=== PATIENT | male | born 1980 | race Caucasian/White ===

== ENCOUNTER 2017-05-25 23:08 | Emergency (ER) | payer SELFPAY ==
[~2017-05-25] VITALS: Ht 182.9 cm; Wt 79.2 kg
[2017-05-25 23:11] VITALS: Ht 182.9 cm; Wt 79.2 kg
[2017-05-25] MEDS ORDERED: IBUPROFEN 600 MG TAB PO ONE (23:30)
[2017-05-25] MEDS ORDERED: AMOXICILLIN/CLAV 875 MG TAB PO ONE (23:30)
[2017-05-26] MEDS ORDERED: IBUP-1542 PO (00:21)
[2017-05-26] MEDS ORDERED: AMOX1TAB10 PO (00:21)
[2017-05-26] MEDS ORDERED: HYDR-906 PO (00:21)
[2017-05-26] MEDS ORDERED: BACI28.34 TOP (00:31)
--- NOTE | 2017-05-26 00:31 | ERD ---
ER Documentation Chief Complaint Chief Complaint sp dogbite to both hands 15 minutes ago HPI Patient is a 36-year-old male who presents to the ED for concerns of dog bites his bilateral hands which occurred approximately 15 minutes prior to arrival. Patient states that he was walking outside with his friends when an unknown dog came up to him and started to jump on him. Patient states he had dog bites to his bilateral hands. Patient does not know this dog. Patient is unsure of the dog's vaccination status. Patient states her last tetanus vaccination was 3 years ago. Patient is able to move his bilateral hands and fingers without any difficulty. Patient denies any medications for symptoms. Patient is visiting from [place]. ROS All systems reviewed and are negative except as per history of present illness. Medications Home Meds Active Scripts Bacitracin* (Bacitracin Zinc Oint*) 28.35 Gm Oint, 1 APPLIC TOP BID, #1 TUB APPLI TO Prov:TEJINDER VALDIVIA PA-C 05/26/17 Hydrocodone/Acetaminophen ([place] 5-325 Tablet) 1 Each Tablet, 1 TAB PO Q6H Y for PAIN, #7 TAB Prov:TEJINDER VALDIVIA PA-C 05/26/17 Amoxicillin/Potassium Clav (Amox-Clav 875-125 mg Tablet) 875-125 mg Tab, 1 TAB PO BID for 10 Days, #20 TAB Prov:TEJINDER VALDIVIA PA-C 05/26/17 Ibuprofen* (Motrin*) 600 Mg Tab, 600 MG PO Q6, #30 TAB Prov:TEJINDER VALDIVIA PA-C 05/26/17 Allergies Allergies: Coded Allergies: No Known Allergy (Unverified , 05/25/17) PMhx/Soc Medical and Surgical Hx: pt denies Medical Hx, pt denies Surgical Hx History of Surgery: No Anesthesia Reaction: No Hx Neurological Disorder: No Hx Respiratory Disorders: No Hx Cardiac Disorders: No Hx Psychiatric Problems: No Hx Miscellaneous Medical Probl: No Hx Alcohol Use: No Hx Substance Use: No Hx Tobacco Use: No Smoking Status: Never smoker Physical Exam Vitals Vital Signs Date Time Temp Pulse Resp B/P Pulse Ox O2 Delivery O2 Flow Rate FiO2 05/25/17 23:11 98.1 90 20 147/111 99 Physical Exam GENERAL: Well-developed, well-nourished male. Appears in no acute distress. HEAD: Normocephalic, atraumatic. EYES: Pupils are equally reactive bilaterally. EOMs grossly intact. No conjunctival erythema. ENT: Moist mucous membranes. No uvula deviation. No kissing tonsils. NECK: Supple. No meningismus. Normal range of motion of the neck. LUNG: Clear to auscultation bilaterally. No rhonchi, wheezing, rales or coarse breath sounds. HEART: Regular rate and rhythm. No murmurs, rubs or gallops EXTREMITIES: Equal pulses bilaterally. No peripheral clubbing, cyanosis or edema. NEUROLOGIC: Alert and oriented. Moving all four extremities without any difficulty. Normal speech. Steady gait. SKIN: Multiple abrasions noted to bilateral hands. Small less 1 cm puncture wounds noted. BILATERAL HANDS: Abrasions and wounds as discussed above. Full range of motion bilateral elbows and wrists. Sensation intact to light touch. Neurovascularly intact. (Able to give thumbs up, make an ok sign, cross digits 2 and 3, thumb to pinky opposition. 2+ RP.) No snuffbox tenderness. Results 24 hrs Current Medications Medications (Trade) Dose Ordered Sig/Dylan Route PRN Reason Start Time Stop Time Status Last Admin Dose Admin Amoxicillin/ Clavulanate Potassium (Augmentin) 875 mg ONCE ONCE PO 05/25/17 23:30 05/25/17 23:31 DC 05/25/17 23:41 Ibuprofen (Motrin) 600 mg ONCE ONCE PO 05/25/17 23:30 05/25/17 23:31 DC Procedures/MDM ED COURSE: The patient was stable throughout ED course. I kept the patient and/or family informed of laboratory and diagnostic imaging results throughout the ED course. DIAGNOSTIC IMAGING: Read by radiologist. Patient: RICKY AZAR : 1980 Age: 36 Sex: M [id number] DOS: 05/25/17 2329 Ordering MD: TEJINDER VALDIVIA PA-C Location: [facility] Room/Bed: PROCEDURE: XR Hand. CLINICAL INDICATION: 36-year of age, male. Status post dog bite. TECHNIQUE: Six views of the bilateral hands. COMPARISON: None available. FINDINGS: LEFT HAND: Negative for evidence of acute fracture. Normal alignment. Joint spaces are maintained without evidence of significant arthritis. There is mild soft tissue swelling dorsal to the metacarpals. Negative for radiopaque foreign body. Additional comment: None. RIGHT HAND: Negative for evidence of acute fracture. Normal alignment. Joint spaces are maintained without evidence of significant arthritis. There is mild soft tissue swelling at the dorsal aspect of the wrist and distal forearm. Negative for radiopaque foreign body. Additional comment: There is a bone island in the distal radius. IMPRESSION: 1. Negative for evidence of acute fracture or dislocation in either left or right hand. 2. Bilateral soft tissue swelling as described. Negative for radiopaque foreign body. RPTAT: HCTS Physician Avila Date Time Electronically viewed and signed by Osorio Bright Physician on 05/26/2017 00: 51 CS/ CC: TEJINDER VALDIVIA PA-C PROCEDURES: MEDICATIONS GIVEN: Ibuprofen, Augmentin Patient tolerated medication well with no adverse reactions. MEDICAL DECISION MAKING: Patient is a 36-year-old male who presents with abrasions and puncture wounds to his bilateral hands after being in by a dog prior to arrival. Patient does not know the dog that bit him. Patient states he received his tetanus vaccination 3 years ago.. Vital signs were reviewed. Patient is afebrile. Patient was not hypoxic. Physical exam findings show that patient was neurovascularly intact. Wounds were cleansed by wind turbine blade repair technician. I examined the patient 's wounds and did not see any foreign bodies, ligament or tendon involvement. X- ray imaging was obtained to rule out any foreign bodies. Xray imaging showed 1. Negative for evidence of acute fracture or dislocation in either left or right hand. 2. Bilateral soft tissue swelling as described. Negative for radiopaque foreign body. . Patient was given first dose of antibiotics here in the ED. wind turbine blade repair technician also dressed wounds with bacitracin. At this time with patient presentation most consistent with dog bite wounds. Low suspicion for deep space infection, abscess, tendon injury, vascular injury, nerve injury, retained foreign body, flexor tenosynovitis. Patient will be discharged home with return precautions as well as instructions to return in 2 days for wound recheck. PRESCRIPTION: Ibuprofen, [place], amoxicillin, bacitracin DISCHARGE: At this time, patient is stable for discharge and outpatient management. Wound recheck advised in 2 days. I have instructed the patient to follow-up with his/ her primary care physician in 1-2 days. I have discussed with the patient the possibility of needing to see a specialist for further workup and imaging studies if symptoms persist. I have instructed the patient to promptly return to the ER for any new or worsening symptoms including increased pain, fever, nausea, vomiting, weakness or LOC. The patient and/or family expressed understanding of and agreement with this plan. All questions were answered. Home care instructions were provided. Disclaimer: Inadvertent spelling and grammatical errors are likely due to EHR/ dictation software use and do not reflect on the overall quality of patient care. Also, please note that the electronic time recorded on this note does not necessarily reflect the actual time of the patient encounter. Departure Diagnosis: Primary Impression: Dog bite of hand Encounter type: initial encounter Laterality: unspecified laterality Qualified Code: S61.459A - Dog bite of hand, unspecified laterality, initial encounter Condition: Stable Patient Instructions: Dog Bite Referrals: [facility] YOU HAVE RECEIVED A MEDICAL SCREENING EXAM AND THE RESULTS INDICATE THAT YOU DO NOT HAVE A CONDITION THAT REQUIRES URGENT TREATMENT IN THE EMERGENCY DEPARTMENT. FURTHER EVALUATION AND TREATMENT OF YOUR CONDITION CAN WAIT UNTIL YOU ARE SEEN IN YOUR DOCTORS OFFICE WITHIN THE NEXT 1-2 DAYS. IT IS YOUR RESPONSIBILITY TO MAKE AN APPOINTMENT FOR FOLOW-UP CARE. IF YOU HAVE A PRIMARY DOCTOR --you should call your primary doctor and schedule an appointment IF YOU DO NOT HAVE A PRIMARY DOCTOR YOU CAN CALL OUR PHYSICIAN REFERRAL HOTLINE AT IF YOU CAN NOT AFFORD TO SEE A PHYSICIAN YOU CAN CHOSE FROM THE FOLLOWING [facility] CLINICS [facility] [address] [facility]. [facility] [address] [facility] [facility] [address] [facility] [facility] [address] [facility]. [facility] [address] [facility]. [facility]. [address] [facility]. [facility] YOU HAVE RECEIVED A MEDICAL SCREENING EXAM AND THE RESULTS INDICATE THAT YOU DO NOT HAVE A CONDITION THAT REQUIRES URGENT TREATMENT IN THE EMERGENCY DEPARTMENT. FURTHER EVALUATION AND TREATMENT OF YOUR CONDITION CAN WAIT UNTIL YOU ARE SEEN IN YOUR DOCTORS OFFICE WITHIN THE NEXT 1-2 DAYS. IT IS YOUR RESPONSIBILITY TO MAKE AN APPOINTMENT FOR FOLOW-UP CARE. IF YOU HAVE A PRIMARY DOCTOR --you should call your primary doctor and schedule and appointment IF YOU DO NOT HAVE A PRIMARY DOCTOR YOU CAN CALL OUR PHYSICIAN REFERRAL HOTLINE AT . IF YOU CAN NOT AFFORD TO SEE A PHYSICIAN YOU CAN CHOSE FROM THE FOLLOWING [facility] IN[facility]IONS: [facility] [address] [place] [address] [facility] [address] [place] [address] [facility] [address] [place] [address] Additional Instructions: Return to the ER in two days for wound recheck. Sooner for any new or worsening symptoms including but not limited to pain, swelling, redness, discharge, fevers or loss of consciousness. Complete full course of antibiotics. Call your primary care doctor TOMORROW for an appointment during the next 1-2 days.See the doctor sooner or return here if your condition worsens before your appointment time. TEJINDER VALDIVIA PA-C May 26, 2017 00:31
--- NOTE | 2017-05-26 00:51 | RADRPT ---
PROCEDURE: XR Hand. CLINICAL INDICATION: 36-year of age, male. Status post dog bite. TECHNIQUE: Six views of the bilateral hands. COMPARISON: None available. FINDINGS: LEFT HAND: Negative for evidence of acute fracture. Normal alignment. Joint spaces are maintained without evid ence of significant arthritis. There is mild soft tissue swelling dorsal to the metacarpals. Negativ e for radiopaque foreign body. Additional comment: None. RIGHT HAND: Negative for evidence of acute fracture. Normal alignment. Joint spaces are maintained without evid ence of significant arthritis. There is mild soft tissue swelling at the dorsal aspect of the wrist and distal forearm. Negative for radiopaque foreign body. Additional comment: There is a bone island in the distal radius. IMPRESSION: 1. Negative for evidence of acute fracture or dislocation in either left or right hand. 2. Bilateral soft tissue swelling as described. Negative for radiopaque foreign body. RPTAT: HCTS Physician Avila Date Time Electronically viewed and signed by Physician Avila on 05/26/2017 00:51 /
== END 2017-05-26 01:04 | disposition home or self-care (01) ==
LOC: FTE 23:08
DX: S61.451A Open bite of right hand, initial encounter (principal); S61.452A Open bite of left hand, initial encounter; W54.0XXA Bitten by dog, initial encounter; Y92.9 Unspecified place or not applicable